=== PATIENT | male | born 1955 | race Caucasian/White ===

== ENCOUNTER 2017-06-02 06:32 | Day surgery (SDC) | payer BC ==
[~2017-06-02] VITALS: Ht 170.2 cm; Wt 96.2 kg
[~2017-06-02 06:32] MED LIST: ATORVASTATIN CA40 MG PO; BRILINTA90 MG PO; IRBESARTAN300 MG PO; METOPROLOL TART25 MG PO; NITROSTAT0.4 MG SL; PANTOPRAZOLE SO40 MG PO
[2017-06-02] MEDS ORDERED: ISOSORBIDE MONO60 MG PO (06:51)
[2017-06-02] MEDS ORDERED: COQ-10100 MG PO (06:52)
[2017-06-02] MEDS ORDERED: VENTOLIN HFA18 GM (06:53)
[2017-06-02] MEDS ORDERED: ASPIRIN81 MG PO (06:53)
[2017-06-02] MEDS ORDERED: CLOPIDOGREL75 MG PO (06:54)
--- NOTE | 2017-06-02 08:09 | NUR ---
06/02/17 0809 Brandi Rosa 0803 PATIENT SLEEPING ON ARRIVAL, AWAKENS WITH VERBAL STIMULI. RESP EVEN AND UNLABORED, NC AT 3 LITERS. DENIES PAIN AND NAUSEA.
--- NOTE | 2017-06-02 08:51 | OR ---
[facility] [address], [place] [address] Signed DATE OF OPERATION: 06/02/2017 SURGEON: Corrine To MD COLONOSCOPY REPORT PREOPERATIVE DIAGNOSES: 1. Father with colon cancer in his 60s. 2. Brother with a history of colonic polyps at age 59. 3. Change in bowel habits with constipation. POSTOPERATIVE DIAGNOSES: 1. Moderate sigmoid diverticulosis. 2. A 4 mm polyp at 10 cm. PROCEDURE: Colonoscopy with hot biopsy. ESTIMATED BLOOD LOSS: None. INDICATIONS: Angela is a 62-year-old gentleman, who was asked to see me for a colonoscopy. He spoke of a negative colonoscopy at age 52 while living in [place]. However, his dad did get diagnosed with colon cancer in his 60s. His brother just had 60 polyps removed last year and then 75 polyps removed again this year. He was age 59 last year. Angela said he started a new diet and he lost 30 pounds, but it did change his bowel habits and he has been more constipated. In the office, I gave Angela, a pamphlet on colonoscopy. We looked at that together along with the risks including, but not limited to gas, bloating, crampy abdominal pain, bleeding, perforation, requiring surgery, and missed diagnosis. We also reviewed the need for IV conscious sedation. He had expressed understanding and wished to proceed. PROCEDURE NOTE: Angela was taken into our endoscopy suite and placed in the left lateral decubitus position. He was given divided doses of 5 mg of Versed and 150 mcg of fentanyl. A digital rectal exam was performed and this was unremarkable. After this, the adult colonoscope was introduced and advanced all the way up into the cecum under direct visualization of camera. It took some extra sedation and abdominal compression to get through his sigmoid colon. It was a bit tortuous and a little bit narrow. He also has Electronically Signed By: CORRINE TO MD 06/02/17 0851 PATIENT NAME: ANGELA DEAN OPERATIVE REPORT DATE OF : 59 REPORT #: [id number] PHYSICIAN: CORRINE TO MD PCP: CHRISTIANO CONNORS PAC REPORT IS CONFIDENTIAL AND NOT TO BE RELEASED WITHOUT AUTHORIZATION [facility] [address], [place] [address] Signed diverticula in the sigmoid colon. They were moderate in size, moderate in number, and scattered about. The scope was then slowly withdrawn from the cecum. His prep was good. We found just a single polyp at 10 cm in the rectum. It was small, maybe 4 or 5 mm at most. It was easily removed with a hot biopsy forceps. Upon retroflexion of the scope, there was no additional pathology noted above the anal canal. After this, the gas was suctioned out. The colonoscope removed. Angela tolerated the procedure quite well. RECOMMENDATIONS: I will see Angela back in my office in 7 to 14 days to review his results. We will have him resume his Plavix and aspirin a day for his cardiac issues. Corrine To MD ALB/[id number] /[id number] cc: MD Dr. Tonny Burciaga Copies: CORRINE TO MD ~ Electronically Signed By: CORRINE TO MD 06/02/17 0851 PATIENT NAME: ANGELA DEAN OPERATIVE REPORT DATE OF : 59 REPORT #: [id number] PHYSICIAN: CORRINE TO MD PCP: CHRISTIANO CONNORS PAC REPORT IS CONFIDENTIAL AND NOT TO BE RELEASED WITHOUT AUTHORIZATION
== END 2017-06-02 08:40 | disposition home or self-care (01) ==
LOC: OPS 06:32 → DS 06:32 → OPS 06:45
PROVIDERS: Colon & Rectal Surgery
PROC: 0DBP8ZX Excision of Rectum, Via Natural or Artificial Opening Endoscopic, Diagnostic (ICD-10-PCS; principal; 2017-06-02 06:45)
DX: K62.1 Rectal polyp (principal); K57.30 Diverticulosis of large intestine without perforation or abscess without bleeding; I25.10 Atherosclerotic heart disease of native coronary artery without angina pectoris; I10 Essential (primary) hypertension; G47.33 Obstructive sleep apnea (adult) (pediatric); E78.5 Hyperlipidemia, unspecified; E11.9 Type 2 diabetes mellitus without complications; I25.2 Old myocardial infarction; Z95.1 Presence of aortocoronary bypass graft; Z88.8 Allergy status to other drugs, medicaments and biological substances; Z79.82 Long term (current) use of aspirin; Z79.899 Other long term (current) drug therapy
CPT/HCPCS: 99153; G0500; J2250; J3010; J7120